=== PATIENT | female | born 2000 | race Caucasian/White ===

== ENCOUNTER 2025-02-25 17:45 | Emergency (ER) | payer SELFPAY ==
[~2025-02-25] VITALS: Ht 177.8 cm; Wt 67.1 kg
[2025-02-25 18:26] VITALS: BP 147/63; TEMP 98.7; O2SAT 100
[2025-02-25] MEDS ORDERED: CLIN300C12 PO (18:29)
[2025-02-25] MEDS ORDERED: LORAZEPAM 1 MG TABLET PO ONE (18:30)
== END 2025-02-25 18:28 | disposition home or self-care (01) ==
LOC: ER 17:53
DX: S90.822A Blister (nonthermal), left foot, initial encounter (principal); L03.116 Cellulitis of left lower limb; F41.9 Anxiety disorder, unspecified; R45.1 Restlessness and agitation; F19.10 Other psychoactive substance abuse, uncomplicated; Z59.00 Homelessness unspecified; Z88.8 Allergy status to other drugs, medicaments and biological substances; X58.XXXA Exposure to other specified factors, initial encounter; Y93.89 Activity, other specified; Y92.89 Other specified places as the place of occurrence of the external cause; Y99.8 Other external cause status